=== PATIENT | female | born 2000 | race Two or more races ===

== ENCOUNTER 2020-05-16 01:23 | Observation (INO) | payer SELFPAY ==
[2020-05-16 04:50] LABS: ABSOLUTE BASOPHILS # (AUTO) 0.1 10^3/uL (0.0-0.2); ABSOLUTE EOSINOPHILS # (AUTO) 0.6 10^3/uL (0.0-0.6); ABSOLUTE LYMPHOCYTES (AUTO) 3.9 10^3/uL (0.5-4.7); ABSOLUTE MONOCYTES (AUTO) 0.9 10^3/uL (0.1-1.4); BASOPHILS % (AUTO) 0.7 % (0-2); EOSINOPHILS % (AUTO) 4.4 % (0-6); HEMATOCRIT 35.7 % (36.0-47.0); LYMPHOCYTES % (AUTO) 26.9 % (13-45); MEAN CORPUSCULAR HEMOGLOBIN 23.8 pg (27.0-33.4); MEAN CORPUSCULAR HGB CONC 33.5 g/dL (32.0-36.0); MEAN CORPUSCULAR VOLUME 71 fl (80-97); MONOCYTES % (AUTO) 6.5 % (3-13); PLATELET COUNT 422 10^3/uL (150-450); RED BLOOD COUNT 5.04 10^6/uL (3.72-5.28); RED CELL DISTRIBUTION WIDTH 16.7 % (11.5-14.0); SEGMENTED NEUTROPHILS % (AUTO) 61.5 % (42-78); TOTAL CELLS COUNTED % (AUTO) 100 %; WHITE BLOOD COUNT 14.7 10^3/uL (4.0-10.5)
[2020-05-16 05:07] LABS: ALBUMIN 4.4 g/dL (3.5-5.0); ALKALINE PHOSPHATASE 66 U/L (38-126); ANION GAP 9 (5-19); ASPARTATE AMINO TRANSFERASE 25 U/L (14-36); BILIRUBIN,DIRECT 0.2 mg/dL (0.0-0.4); BILIRUBIN,TOTAL 0.5 mg/dL (0.2-1.3); BLOOD UREA NITROGEN 14 mg/dL (7-20); CALCIUM 9.4 mg/dL (8.4-10.2); CARBON DIOXIDE 25 mmol/L (22-30); CHLORIDE 104 mmol/L (98-107); GLUCOSE 89 mg/dL (75-110); POTASSIUM 4.3 mmol/L (3.6-5.0); TOTAL PROTEIN 7.7 g/dL (6.3-8.2)
[2020-05-16 05:16] LABS: APPEARANCE,URINE CLEAR; BILIRUBIN,URINE NEGATIVE (NEGATIVE); COLOR,URINE YELLOW; GLUCOSE, URINE NEGATIVE (NEGATIVE); KETONES,URINE NEGATIVE (NEGATIVE); LEUKOCYTE ESTERASE,URINE NEGATIVE (NEGATIVE); NITRITE,URINE NEGATIVE (NEGATIVE); PROTEIN,URINE NEGATIVE (NEGATIVE); URINE SPECIFIC GRAVITY 1.028; UROBILINOGEN,URINE NEGATIVE mg/dL (<2.0)
--- NOTE | 2020-05-16 08:30 | ER Document Report ---
ED GI/ - General Chief Complaint: Abdominal Pain Stated Complaint: abdominal pain Time Seen by Provider: 05/16/20 08:18 Notes: CHIEF COMPLAINT: Right upper quadrant pain for a week HPI: 19-year-old obese female presenting for right upper quadrant pain for a week became constant yesterday afternoon. Has had slight nausea no vomiting no fever. States she has been diagnosed with gallstones in the past. ROS: See HPI - all other systems were reviewed and are otherwise negative Constitutional: no fever Eyes: no drainage, no blurred vision ENT: no runny nose, no sore throat Cardiovascular: no chest pain Resp: no SOB, no cough GI: no vomiting, no diarrhea, + abdominal pain, positive nausea : no dysuria Integumentary: no rash Allergy: no hives Musculoskeletal: no extremity pain or swelling Neurological: no numbness/tingling, no weakness MEDICATIONS: I agree with the patient medications as charted by the RN. ALLERGIES: I agree with the allergies as charted by the RN. PAST MEDICAL HISTORY/PAST SURGICAL HISTORY: Reviewed and agree as charted by RN. SOCIAL HISTORY: Reviewed and agree as charted by RN. FAMILY HISTORY: No significant familial comorbid conditions directly related to patient complaint EXAM: Reviewed vital signs as charted by RN. CONSTITUTIONAL: Alert and oriented and responds appropriately to questions. Well-appearing; well-nourished HEAD: Normocephalic; atraumatic EYES: PERRL; Conjunctivae clear, sclerae non-icteric ENT: normal nose; no rhinorrhea; moist mucous membranes; pharynx without lesions noted, no uvula edema or deviation, no tonsillar hypertrophy, phonation normal NECK: Supple without meningismus; non-tender; no cervical lymphadenopathy, no masses CARD: RRR; no murmurs, no clicks, no rubs, no gallops; symmetric distal pulses RESP: Normal chest excursion without splinting or tachypnea; breath sounds clear and equal bilaterally; no wheezes, no rhonchi, no rales, pulse oximetry 97% on room air not hypoxic ABD/GI: Obese, normal bowel sounds; non-distended; soft, moderate tenderness w ith guarding in the right upper quadrant, positive Kan sign; no palpable organomegaly or masses. BACK: The back appears normal and is non-tender to palpation, there is no CVA tenderness EXT: Normal ROM in all joints; non-tender to palpation; no cyanosis, no effusions, no edema SKIN: Normal color for age and race; warm; dry; good turgor; no acute lesions noted NEURO: Moves all extremities equally; Motor and sensory function intact PSYCH: The patient's mood and manner are appropriate. Grooming and personal hygiene are appropriate. MDM: 19-year-old female with history of cholelithiasis presenting with right upper quadrant pain intermittent for a week more constant since yesterday after noon. Moderate tenderness in the right upper quadrant will obtain ultrasound to evaluate for cholecystitis. Patient with a mild leukocytosis but no lab abnormalities in her liver functions or lipase. - Related Data Allergies/Adverse Reactions: No Known Allergies Allergy (Verified 05/16/20 08:09) Past Medical History - Social History Smoking Status: Never Smoker Family History: Reviewed & Not Pertinent Past Surgical History: Reports: Hx Tonsillectomy Physical Exam - Vital signs Vitals: Temp Pulse Resp BP Pulse Ox 98.2 F 63 18 133/66 H 100 05/16/20 02:28 05/16/20 02:28 05/16/20 02:28 05/16/20 02:28 05/16/20 02:28 Course - Re-evaluation Re-evalutation: 05/16/20 11:22 Patient's ultrasound suggests cholecystitis. Gallstones in the neck with gallbladder wall thickening. She is still moderately tender in the right upper quadrant. Has been n.p.o. since last night. Patient denies . I will send a test as this was not ordered with her original blood work last night. Dr. Hall down to see the patient. Will admit - Vital Signs Vital signs: Temp Pulse Resp BP Pulse Ox 97.9 F 73 16 134/67 H 100 05/16/20 10:26 05/16/20 10:26 05/16/20 10:26 05/16/20 10:26 05/16/20 10:26 - Laboratory Result Diagrams: 05/16/20 04:35 05/16/20 04:35 Laboratory results interpreted by me: 05/16/20 04:35 WBC 14.7 H Hct 35.7 L MCV 71 L MCH 23.8 L RDW 16.7 H Absolute Neuts (auto) 9.0 H Discharge - Discharge Clinical Impression: Acute cholecystitis due to biliary calculus Condition: Stable Disposition: ADMITTED INPATIENT Admitting Provider: Surgicalist - Dr. Hall Unit Admitted: Surgical Floor
[2020-05-16] MEDS ORDERED: ONDANSETRON HCL INJ/PF 4 MG/2 ML SDV IV ONE (10:53)
[2020-05-16] MEDS ORDERED: MORPHINE SULFATE 10 MG/ML INJ IV ONE (10:53)
--- NOTE | 2020-05-16 10:57 | RADIOLOGY REPORT (SQ) ---
EXAM DESCRIPTION: U/S ABDOMEN LIMITED W/O DOP IMAGES COMPLETED DATE/TIME: 05/16/2020 10:41 am REASON FOR STUDY: ruq pain hx gallstones COMPARISON: None. TECHNIQUE: Dynamic and static grayscale images acquired of the abdomen and recorded on PACS. Additio nal selected color Doppler and spectral images recorded. LIMITATIONS: None. FINDINGS: PANCREAS: No masses. Visualized pancreatic duct normal caliber. LIVER: Enlarged, 21.8 cm. No masses identified. Echotexture mildly increased consistent with fatty i nfiltration. LIVER VASCULATURE: Normal directional flow of the main portal vein and hepatic veins. GALLBLADDER: Multiple Gallstones noted within the gallbladder neck and increased gallbladder wall thi ckness, 4 mm. No pericholecystic fluid. ULTRASOUND-DETECTED DE SOUZA'S SIGN: Negative. INTRAHEPATIC DUCTS AND COMMON DUCT: CBD and intrahepatic ducts normal caliber. No filling defects. INFERIOR VENA CAVA: Normal flow. AORTA: No aneurysm identified. RIGHT KIDNEY: Normal size. Normal echogenicity. No solid or suspicious masses. No hydronephros is. No calcifications. PERITONEAL AND RIGHT PLEURAL SPACE: No ascites or effusions. OTHER: No other significant findings. IMPRESSION: Multiple Gallstones noted within the gallbladder neck and increased gallbladder wall thi ckness, 4 mm. No pericholecystic fluid. TECHNICAL DOCUMENTATION: JOB ID: [id number] [place]-[id number] 2010 [employer]- All Rights Reserved Reading location - IP/workstation name: [email or web address]
[2020-05-16] MEDS ORDERED: NORMAL SALINE 1000 ML 1,000 ML IV ONE ×2 (11:40→11:41)
[2020-05-16] MEDS ORDERED: CEFOXITIN INJ 2 GM VIAL IV ONE (11:43)
[2020-05-16] MEDS ORDERED: ONDANSETRON HCL INJ/PF 4 MG/2 ML SDV IV PRN (11:53)
[2020-05-16] MEDS ORDERED: MORPHINE SULFATE 10 MG/ML INJ IV PRN (11:53)
--- NOTE | 2020-05-16 11:53 | PDOC H&P ---
History of Present Illness Admission Date/PCP: 05/16/20 11:39 Patient complains of: Right upper quadrant abdominal pain for 1 week History of Present Illness: ELLYN ECKERT is a 19 year old female, healthy, complaining of right upper quadrant abdominal pain for 1 week, who presents to the emergency room with above symptoms. An ultrasound gallbladder reveals gallbladder wall thickening with multiple gallstones. She has a mild leukocytosis of 14,000 and normal liver profile. Past Surgical History Past Surgical History: Reports: Tonsillectomy Social History Smoking Status: Never Smoker Family History Family History: Reviewed & Not Pertinent Parental Family History Reviewed: No Children Family History Reviewed: No Sibling(s) Family History Reviewed.: No Medication/Allergy Allergies/Adverse Reactions: No Known Allergies Allergy (Verified 05/16/20 08:09) Physical Exam Vital Signs: Temp Pulse Resp BP Pulse Ox 97.9 F 73 16 134/67 H 100 05/16/20 10:26 05/16/20 10:26 05/16/20 10:26 05/16/20 10:26 05/16/20 10:26 Intake & Output 05/15/20 05/16/20 05/17/20 06:59 06:59 06:59 Weight 122.47 kg General appearance: PRESENT: no acute distress, obese Head exam: PRESENT: atraumatic, normocephalic Eye exam: PRESENT: EOMI Mouth exam: PRESENT: moist, neck supple Neck exam: PRESENT: full ROM Respiratory exam: PRESENT: clear to auscultation fabiola Cardiovascular exam: PRESENT: RRR GI/Abdominal exam: PRESENT: hypoactive bowel sounds, soft, tenderness - Right upper quadrant with grimacing Extremities exam: PRESENT: full ROM, tenderness Neurological exam: PRESENT: alert, awake, oriented to time, CN II-XII grossly intact Psychiatric exam: PRESENT: appropriate affect Skin exam: PRESENT: warm Results Laboratory Results: 05/16/20 04:35 05/16/20 04:35 05/16/20 05/16/20 05/16/20 04:35 04:35 04:35 WBC 14.7 H RBC 5.04 Hgb 12.0 Hct 35.7 L MCV 71 L MCH 23.8 L MCHC 33.5 RDW 16.7 H Plt Count 422 Seg Neutrophils % 61.5 Sodium 137.8 Potassium 4.3 Chloride 104 Carbon Dioxide 25 Anion Gap 9 BUN 14 Creatinine 0.63 Est GFR ( Amer) > 60 Glucose 89 Calcium 9.4 Total Bilirubin 0.5 AST 25 Alkaline Phosphatase 66 Total Protein 7.7 Albumin 4.4 Lipase 61.1 Serum HCG, Qual Urine Color YELLOW Urine Appearance CLEAR Urine pH 6.0 Ur Specific [place] 1.028 Urine Protein NEGATIVE Urine Glucose (UA) NEGATIVE Urine Ketones NEGATIVE Urine Blood NEGATIVE Urine Nitrite NEGATIVE Ur Leukocyte Esterase NEGATIVE Urine WBC (Auto) 3 Urine RBC (Auto) 2 05/16/20 04:35 WBC RBC Hgb Hct MCV MCH MCHC RDW Plt Count Seg Neutrophils % Sodium Potassium Chloride Carbon Dioxide Anion Gap BUN Creatinine Est GFR ( Amer) Glucose Calcium Total Bilirubin AST Alkaline Phosphatase Total Protein Albumin Lipase Serum HCG, Qual NEGATIVE Urine Color Urine Appearance Urine pH Ur Specific [place] Urine Protein Urine Glucose (UA) Urine Ketones Urine Blood Urine Nitrite Ur Leukocyte Esterase Urine WBC (Auto) Urine RBC (Auto) Impressions: Abdomen Ultrasound 05/16/20 08:31 IMPRESSION: Multiple Gallstones noted within the gallbladder neck and increased gallbladder wall thickness, 4 mm. No pericholecystic fluid. Assessment & Plan - Diagnosis (1) Acute cholecystitis due to biliary calculus Is this a current diagnosis for this admission?: Yes - Time Time Spent: 30 to 50 Minutes Medications reviewed and adjusted accordingly: Yes Anticipated Discharge Disposition: Home, Self Care Anticipated Discharge Timeframe: within 36 hours - Plan Summary Plan Summary: Assessment: 1 week history of right upper quadrant pain History of cholelithiasis for 2 years Ultrasound gallbladder significant for acute cholecystitis with cholelithiasis Mild leukocytosis 14,000 Normal liver profile Physical exam significant for right upper quadrant pain Plan: Admit N.p.o. IV fluids IV Mefoxin 2 g every 8 COVID-19 test preop Plan laparoscopic cholecystectomy possible open possible cholangiogram. Procedure, risks, benefits, complications, including bowel injury, bleeding from the liver, injury to the bile ducts which may require a second operation and/or transfer to tertiary center, multiple infections, and have been discussed with the patient, her questions were answered to her satisfaction, she desires to proceed
[2020-05-16] MEDS ORDERED: GLYCOPYRROLATE 1 MG/5 ML VIAL ONE (13:44)
[2020-05-16] MEDS ORDERED: NEOSTIGMINE METHYLSULFATE 10 MG/10 ML VIAL ONE (13:44)
[2020-05-16] MEDS ORDERED: CEFOXITIN INJ 2 GM VIAL IV SCH (14:00)
[2020-05-16] MEDS ORDERED: DEXTROSE 40% GEL 15 GM TUBE PO PRN ×2 (16:42)
[2020-05-16] MEDS ORDERED: DEXTROSE 50%-WATER 25 GM/50 ML DISP.SYRIN IV PRN ×2 (16:42)
[2020-05-16] MEDS ORDERED: GLUCAGON,HUMAN RECOMB 1 MG INJ SUBCUT PRN (16:42)
[2020-05-16] MEDS: CEFOXITIN SODIUM 2 GM in DEXTROSE 5%-WATER 100 ML IV SCH (19:23)
[2020-05-17] MEDS: CEFOXITIN SODIUM 2 GM in DEXTROSE 5%-WATER 100 ML IV SCH ×3 (02:57→17:43)
[2020-05-17 07:35] LABS: ABSOLUTE EOSINOPHILS # (AUTO) 0.5 10^3/uL (0.0-0.6); ABSOLUTE LYMPHOCYTES (AUTO) 2.8 10^3/uL (0.5-4.7); ABSOLUTE MONOCYTES (AUTO) 0.5 10^3/uL (0.1-1.4); ABSOLUTE NEUT (AUTO) 4.9 10^3/uL (1.7-8.2); BASOPHILS % (AUTO) 0.6 % (0-2); EOSINOPHILS % (AUTO) 5.2 % (0-6); HEMOGLOBIN 11.2 g/dL (12.0-15.5); LYMPHOCYTES % (AUTO) 32.4 % (13-45); MEAN CORPUSCULAR HGB CONC 33.9 g/dL (32.0-36.0); MEAN CORPUSCULAR VOLUME 71 fl (80-97); MONOCYTES % (AUTO) 6.1 % (3-13); PLATELET COUNT 337 10^3/uL (150-450); RED BLOOD COUNT 4.66 10^6/uL (3.72-5.28); RED CELL DISTRIBUTION WIDTH 16.7 % (11.5-14.0); SEGMENTED NEUTROPHILS % (AUTO) 55.7 % (42-78); TOTAL CELLS COUNTED % (AUTO) 100 %; WHITE BLOOD COUNT 8.8 10^3/uL (4.0-10.5)
[2020-05-17 07:47] LABS: ALBUMIN 3.9 g/dL (3.5-5.0); ALKALINE PHOSPHATASE 56 U/L (38-126); ANION GAP 8 (5-19); ASPARTATE AMINO TRANSFERASE 20 U/L (14-36); BILIRUBIN,DIRECT 0.3 mg/dL (0.0-0.4); BILIRUBIN,TOTAL 0.6 mg/dL (0.2-1.3); BLOOD UREA NITROGEN 7 mg/dL (7-20); CALCIUM 9.2 mg/dL (8.4-10.2); CARBON DIOXIDE 25 mmol/L (22-30); CHLORIDE 107 mmol/L (98-107); GLUCOSE 75 mg/dL (75-110); POTASSIUM 4.3 mmol/L (3.6-5.0); TOTAL PROTEIN 6.9 g/dL (6.3-8.2)
--- NOTE | 2020-05-17 10:28 | PDOC PROGRESS REPORT ---
Subjective Progress Note for:: 05/17/20 Subjective:: The patient is feeling comfortable, complaining of minimal abdominal discomfort, no nausea or vomiting reported Reason For Visit: ACUTE CHOLECYSTITIS DUE TO BILIARY CALCULUS Physical Exam Vital Signs: Temp Pulse Resp BP Pulse Ox 97.8 F 69 16 106/44 L 100 05/17/20 08:00 05/17/20 07:39 05/17/20 07:39 05/17/20 07:39 05/17/20 07:39 Intake & Output 05/16/20 05/17/20 05/18/20 06:59 06:59 06:59 Intake Total 2089 Balance 2089 Weight 122.47 kg 124 kg General appearance: PRESENT: no acute distress, obese Respiratory exam: PRESENT: clear to auscultation fabiola Cardiovascular exam: PRESENT: RRR GI/Abdominal exam: PRESENT: soft, tenderness - Right upper quadrant Results Laboratory Results: 05/17/20 06:14 05/17/20 06:14 05/16/20 05/17/20 05/17/20 04:35 06:14 06:14 WBC 8.8 RBC 4.66 Hgb 11.2 L Hct 33.0 L MCV 71 L MCH 24.0 L MCHC 33.9 RDW 16.7 H Plt Count 337 Seg Neutrophils % 55.7 Sodium 139.5 Potassium 4.3 Chloride 107 Carbon Dioxide 25 Anion Gap 8 BUN 7 Creatinine 0.61 Est GFR ( Amer) > 60 Glucose 75 Calcium 9.2 Total Bilirubin 0.6 AST 20 Alkaline Phosphatase 56 Total Protein 6.9 Albumin 3.9 Serum HCG, Qual NEGATIVE Impressions: Abdomen Ultrasound 05/16/20 08:31 IMPRESSION: Multiple Gallstones noted within the gallbladder neck and increased gallbladder wall thickness, 4 mm. No pericholecystic fluid. Assessment & Plan - Diagnosis (1) Acute cholecystitis due to biliary calculus Is this a current diagnosis for this admission?: Yes - Time Anticipated Discharge Disposition: Home, Self Care Anticipated Discharge Timeframe: within 48 hours - Plan Summary Plan Summary: Assessment: Acute cholecystitis with cholelithiasis as per ultrasound White blood cell count normal today CMP within normal limits Physical exam significant for slight right upper quadrant tenderness COVID-19 test pending Plan: Laparoscopic cholecystectomy, possible open, possible cholangiogram as soon as the COVID-19 test results are available Continue n.p.o. Continue IV fluids Continue IV antibiotics (Mefoxin)
[2020-05-17] MEDS: NORMAL SALINE 1000 ML 1,000 ML IV PRN (14:58)
--- NOTE | 2020-05-17 21:41 | CDI QUERY ---
<KULWANT GARCIA - Last Filed: 05/17/20 21:39> CDI Query CDI Review: Documentation in the Medical Record indicates : Per ED notes: 19-year-old obese female presenting for right upper quadrant pain for a week became constant yesterday afternoon Height: 5 ft 4 in Weight: 124 kg (272.8 lbs) Calculated BMI: 46.8 kg/m2 Based on your medical judgement, can you further clarify in the Progress Notes the diagnosis associated with these findings: Morbid Obesity / 46.8 kg/m2 Overweight / 46.8 kg/m2 Obesity / 46.8 kg/m2 Other condition (please specify) None of the above / Not applicable Please note: Obesity is defined as: Class 1: BMI of 30 to < 35 Class 2: BMI of 35 to < 40 Class 3: BMI of > 40 (this is also defined as Morbid Obesity) Overweight: BMI 25 to < 30 Normal weight: BMI 18.5 to < 25 The condition of Morbid Obesity is a significant contributing factor to the health and recovery of a patient. Thank you for your consideration. HEATHER Williamson RN Clinical Cnc Machine Operator Physician Advisor <YOSELIN VINCENT - Last Filed: 05/17/20 23:48> CDI Query CDI Review: Agree w/ above and this patient is affected by morbid obesity Agree with Query: Yes - patient is affected by morbid obesity
[2020-05-18] MEDS: NORMAL SALINE 1000 ML 1,000 ML IV PRN (01:33)
[2020-05-18] MEDS: CEFOXITIN SODIUM 2 GM in DEXTROSE 5%-WATER 100 ML IV SCH ×2 (01:33→13:07)
[2020-05-18] MEDS ORDERED: INFLUENZA QUAD (6MOS+) 2020-21 VAC 0.5 ML SYR IM ONE (08:00)
[2020-05-18] MEDS ORDERED: ONDANSETRON HCL INJ/PF 4 MG/2 ML SDV ONE (09:26)
[2020-05-18] MEDS ORDERED: FENTANYL CITRATE INJ/PF 100 MCG/2 ML AMPUL ONE (09:26)
[2020-05-18] MEDS ORDERED: DEXAMETHASONE SOD PHOSPHATE INJ 4 MG/1 ML VIAL ONE (09:26)
[2020-05-18] MEDS ORDERED: MIDAZOLAM 2 MG/2 ML INJ ONE (09:26)
[2020-05-18] MEDS ORDERED: PROPOFOL INJ 200 MG/20 ML VIAL IV ONE (09:27)
[2020-05-18] MEDS ORDERED: BUPIVACAINE HCL 0.25 % INJ/PF (2.5 MG/1 ML) 30 ML VIAL ONE (09:34)
--- NOTE | 2020-05-18 09:46 | PDOC PROGRESS REPORT ---
Subjective Progress Note for:: 05/18/20 Subjective:: 19 y/o F with acute cholecystitis. She is relatively pain free this am. She denies any SOB or CP. Reason For Visit: ACUTE CHOLECYSTITIS WITH CHOLELITHIASIS Physical Exam Vital Signs: Temp Pulse Resp BP Pulse Ox 97.6 F 72 16 133/53 H 95 05/18/20 08:21 05/18/20 08:21 05/18/20 08:21 05/18/20 08:21 05/18/20 08:21 Intake & Output 05/17/20 05/18/20 05/19/20 06:59 06:59 06:59 Intake Total 2089 1300 Balance 2089 1300 Weight 124 kg 123.4 kg General appearance: PRESENT: no acute distress, cooperative Head exam: PRESENT: atraumatic, normocephalic Eye exam: PRESENT: EOMI, PERRLA. ABSENT: scleral icterus Mouth exam: PRESENT: moist, neck supple Neck exam: ABSENT: meningismus, tenderness, thyromegaly Respiratory exam: PRESENT: unlabored. ABSENT: tachypnea, wheezes Cardiovascular exam: ABSENT: tachycardia GI/Abdominal exam: PRESENT: soft, tenderness - mild RUQ. ABSENT: rigid Rectal exam: PRESENT: deferred Extremities exam: ABSENT: clubbing Musculoskeletal exam: ABSENT: deformity Neurological exam: PRESENT: alert, awake, oriented to person, oriented to place, oriented to time, oriented to situation. ABSENT: motor sensory deficit Psychiatric exam: ABSENT: agitated, anxious, depressed Focused psych exam: ABSENT: delusional Skin exam: ABSENT: cyanosis, erythema, jaundice Results Laboratory Results: 05/17/20 06:14 05/17/20 06:14 Impressions: Abdomen Ultrasound 05/16/20 08:31 IMPRESSION: Multiple Gallstones noted within the gallbladder neck and increased gallbladder wall thickness, 4 mm. No pericholecystic fluid. Assessment & Plan - Diagnosis (1) Acute cholecystitis due to biliary calculus Is this a current diagnosis for this admission?: Yes - Time Anticipated Discharge Disposition: Home, Self Care Anticipated Discharge Timeframe: within 24 hours - Plan Summary Plan Summary: 19 y/o F with acute cholecystitis. Plan for cholecystectomy today.Risks/benefits discussed, informed consent obtained, and all questions answered.
[2020-05-18] MEDS ORDERED: FENTANYL CITRATE INJ/PF 100 MCG/2 ML AMPUL IV PRN ×3 (10:27)
[2020-05-18] MEDS ORDERED: DIPHENHYDRAMINE HCL 50 MG/ML VIAL IV PRN (10:27)
[2020-05-18] MEDS ORDERED: OXYCODONE-ACETAMINOPHEN 5-325 MG TABLET PO PRN ×2 (10:27)
[2020-05-18] MEDS ORDERED: PROMETHAZINE HCL INJ 25 MG/1 ML VIAL IV PRN ×2 (10:27)
[2020-05-18] MEDS ORDERED: MORPHINE SULFATE 10 MG/ML INJ IV PRN (10:27)
[2020-05-18] MEDS ORDERED: MEPERIDINE HCL/PF INJ 25 MG/1 ML DISP.SYRIN IV PRN (10:27)
[2020-05-18] MEDS ORDERED: HYDROMORPHONE HCL INJ/PF 2 MG/ML AMPULE ONE (10:29)
--- NOTE | 2020-05-18 11:41 | Operative Report ---
Nonrecallable Operative Report DATE OF SURGERY: 05/18/20 PREOPERATIVE DIAGNOSIS: Acute cholecystitis POSTOPERATIVE DIAGNOSIS: 1. Same as above. 2. Gallbladder hydrops OPERATION: Laparoscopic cholecystectomy SURGEON: JARAD SANCHEZ ANESTHESIA: GA TISSUE REMOVED OR ALTERED: Gallbladder COMPLICATIONS: None apparent ESTIMATED BLOOD LOSS: 30 cc PROCEDURE: Drains/implants: 15 Nepali round Mike drain in the gallbladder fossa. Procedure in detail: After informed consent was obtained, the patient was brought into the operating room and laid in the supine position. The area of the abdomen was prepped and draped in a normal sterile fashion. A supraumbilical incision was created with a 15 blade scalpel. Dissection was carried through the subcutaneous tissues using sharp and blunt dissection. The cicatrix was identified, grasped with a Deo clamp, and retracted upwards. The linea alba fascia was incised sharply, the abdomen was entered sharply. The balloon trocar was inserted, and pneumoperitoneum was achieved. The 5 mm subxiphoid port was placed under direct laparoscopic visualization. 2 more 5 mm ports were placed in the right upper quadrant in similar fashion. Atraumatic graspers were placed through the 5 mm ports. The gallbladder was tense and distended, secondary to this a cyst aspiration needle was used to aspirate bile from the gallbladder. The bile was found to be hydropic. The gallbladder was then retracted cephalad and laterally. Dissection was begun in the triangle of [place]. There was a dense inflammatory reaction in and around the infundibulum of the gallbladder. It was very difficult to identify the cystic duct. Secondary to this, a dome down technique was employed. The gallbladder was freed from the liver using a mixture of electrocautery and blunt dissection. Once the infundibulum was reached, the cystic artery was visually identified, and clipped. The gallbladder was then amputated at the level of the infundibulum. 2 stones were extracted from the neck of the gallbladder. After this was completed, the infundibulum was closed using a 0 PDS Endoloop. The gallbladder was then placed into an Endo Catch bag, and pulled out through the umbilicus. The camera was reinserted. The abdomen was copiously irrigated and suctioned, until the effluent was clear. The hilum was inspected. It was found to be free of any leakage of blood or bile. A 15 Nepali round Mike drain was then placed into the lateralmost port. It was situated into the gallbladder fossa. It was sutured in place using 2-0 nylon suture. The 5 mm trochars were then removed under direct laparoscopic visualization. The supraumbilical trocar was then removed, and pneumoperitoneum was relieved. The supraumbilical fascia was closed using 0 Vicryl suture in [id number] fashion. The overlying skin was closed using 4-0 Vicryl Rapide suture in subcuticular fashion. Dressings were placed, and the procedure was concluded. All sponge, instrument, and needle counts were correct x2. Condition: Stable.
[2020-05-18] MEDS: FENTANYL CITRATE INJ/PF 100 MCG/2 ML AMPUL ONE ×2 (11:50→12:10)
[2020-05-18] MEDS: IBUPROFEN 800 MG TABLET PO SCH (16:50)
[2020-05-18] MEDS: HYDROCODONE/ACETAMINOPHEN 10-325 MG TABLET PO PRN ×2 (17:42→21:44)
[2020-05-19] MEDS: HYDROCODONE/ACETAMINOPHEN 10-325 MG TABLET PO PRN ×2 (02:00→06:53)
--- NOTE | 2020-05-19 06:44 | PDOC DISCHARGE SUMMARY ---
General - Admit/Disc Date/PCP Admission Date/Primary Care Provider: 05/16/20 11:39 Discharge Date: 05/19/20 - Discharge Diagnosis Final Diagnosis: acute cholecystitis - Assessment Summary: This is a 19-year-old female admitted with acute cholecystitis. She was admitted to the hospital and started on intravenous antibiotics. She was taken to the operating room yesterday, where laparoscopic cholecystectomy was successfully performed. The patient was taken to the floor in stable condition. She began tolerating a diet. Her pain is controlled with oral pain medications. At this time, it is felt that she has reached maximal hospital benefit and is fit for discharge. - Additional Information Resuscitation Status: Full Code Discharge Diet: As Tolerated Discharge Activity: No Lifting Over 10 Pounds, No Lifting/Push/Pulling Prescriptions: Hydrocodone/Acetaminophen [[place] 10-325 mg Tablet] 1 tab PO Q6HP PRN #14 tablet PRN Reason: For Pain Home Medications: Hydrocodone/Acetaminophen [[place] 10-325 mg Tablet] 1 tab PO Q6HP PRN #14 tablet 05/19/20 Additional Information: Discharge home. Diet as tolerated. Activity: No lifting greater than 10 pounds x 2 weeks. Follow-up with [facility] in 7 to 10 days for drain removal. Record drain output every 24 hours. Okay to shower. [place] 10/3 2 5 mg p.o. every 6 hours PRN for pain. History of Present Illiness History of Present Illness: ELLYN ECKERT is a 19 year old female Physical Exam Vital Signs: Temp Pulse Resp BP Pulse Ox 97.6 F 60 16 113/48 L 99 05/19/20 04:19 05/19/20 04:19 05/19/20 04:19 05/19/20 04:19 05/19/20 04:19 Intake & Output 05/17/20 05/18/20 05/19/20 06:59 06:59 06:59 Intake Total 2089 1300 1590 Output Total 1175 Balance 0 1300 415 Weight 124 kg 123.4 kg 123.1 kg Results Laboratory Results: WBC 8.8 10^3/uL (4.0-10.5) 05/17/20 06:14 RBC 4.66 10^6/uL (3.72-5.28) 05/17/20 06:14 Hgb 11.2 g/dL (12.0-15.5) L 05/17/20 06:14 Hct 33.0 % (36.0-47.0) L 05/17/20 06:14 MCV 71 fl (80-97) L 05/17/20 06:14 MCH 24.0 pg (27.0-33.4) L 05/17/20 06:14 MCHC 33.9 g/dL (32.0-36.0) 05/17/20 06:14 RDW 16.7 % (11.5-14.0) H 05/17/20 06:14 Plt Count 337 10^3/uL (150-450) 05/17/20 06:14 Lymph % (Auto) 32.4 % (13-45) 05/17/20 06:14 Gregg % (Auto) 6.1 % (3-13) 05/17/20 06:14 Eos % (Auto) 5.2 % (0-6) 05/17/20 06:14 Baso % (Auto) 0.6 % (0-2) 05/17/20 06:14 Absolute Neuts (auto) 4.9 10^3/uL (1.7-8.2) 05/17/20 06:14 Absolute Lymphs (auto) 2.8 10^3/uL (0.5-4.7) 05/17/20 06:14 Absolute Monos (auto) 0.5 10^3/uL (0.1-1.4) 05/17/20 06:14 Absolute Eos (auto) 0.5 10^3/uL (0.0-0.6) 05/17/20 06:14 Absolute Basos (auto) 0.0 10^3/uL (0.0-0.2) 05/17/20 06:14 Seg Neutrophils % 55.7 % (42-78) 05/17/20 06:14 Sodium 139.5 mmol/L (137-145) 05/17/20 06:14 Potassium 4.3 mmol/L (3.6-5.0) 05/17/20 06:14 Chloride 107 mmol/L (98-107) 05/17/20 06:14 Carbon Dioxide 25 mmol/L (22-30) 05/17/20 06:14 Anion Gap 8 (5-19) 05/17/20 06:14 BUN 7 mg/dL (7-20) 05/17/20 06:14 Creatinine 0.61 mg/dL (0.52-1.25) 05/17/20 06:14 Est GFR ( Amer) > 60 (>60) 05/17/20 06:14 Est GFR (MDRD) Non-Af > 60 (>60) 05/17/20 06:14 Glucose 75 mg/dL (75-110) 05/17/20 06:14 Calcium 9.2 mg/dL (8.4-10.2) 05/17/20 06:14 Total Bilirubin 0.6 mg/dL (0.2-1.3) 05/17/20 06:14 Direct Bilirubin 0.3 mg/dL (0.0-0.4) 05/17/20 06:14 Neonat Total Bilirubin Not Reportable 05/17/20 06:14 Neonat Direct Bilirubin Not Reportable 05/17/20 06:14 Neonat Indirect Bili Not Reportable 05/17/20 06:14 AST 20 U/L (14-36) 05/17/20 06:14 ALT 23 U/L (<35) 05/17/20 06:14 Alkaline Phosphatase 56 U/L (38-126) 05/17/20 06:14 Total Protein 6.9 g/dL (6.3-8.2) 05/17/20 06:14 Albumin 3.9 g/dL (3.5-5.0) 05/17/20 06:14 Lipase 61.1 U/L (23-300) 05/16/20 04:35 Serum HCG, Qual NEGATIVE (NEGATIVE) 05/16/20 04:35 Urine Color YELLOW 05/16/20 04:35 Urine Appearance CLEAR 05/16/20 04:35 Urine pH 6.0 (5.0-9.0) 05/16/20 04:35 Ur Specific [place] 1.028 05/16/20 04:35 Urine Protein NEGATIVE mg/dL (NEGATIVE) 05/16/20 04:35 Urine Glucose (UA) NEGATIVE mg/dL (NEGATIVE) 05/16/20 04:35 Urine Ketones NEGATIVE mg/dL (NEGATIVE) 05/16/20 04:35 Urine Blood NEGATIVE (NEGATIVE) 05/16/20 04:35 Urine Nitrite NEGATIVE (NEGATIVE) 05/16/20 04:35 Urine Bilirubin NEGATIVE (NEGATIVE) 05/16/20 04:35 Urine Urobilinogen NEGATIVE mg/dL (<2.0) 05/16/20 04:35 Ur Leukocyte Esterase NEGATIVE (NEGATIVE) 05/16/20 04:35 Urine WBC (Auto) 3 /HPF 05/16/20 04:35 Urine RBC (Auto) 2 /HPF 05/16/20 04:35 Urine Bacteria (Auto) TRACE /HPF 05/16/20 04:35 Squamous Epi Cells Auto 2 /HPF 05/16/20 04:35 Urine Mucus (Auto) RARE /LPF 05/16/20 04:35 Urine Ascorbic Acid NEGATIVE (NEGATIVE) 05/16/20 04:35 COVID-19 Source See comment 05/16/20 14:20 COVID-19 ([place]) Not Detected (Not Detect) 05/16/20 14:20 Impressions: Abdomen Ultrasound 05/16/20 08:31 IMPRESSION: Multiple Gallstones noted within the gallbladder neck and increased gallbladder wall thickness, 4 mm. No pericholecystic fluid.
[2020-05-19] MEDS: IBUPROFEN 800 MG TABLET PO SCH (08:04)
[2020-05-19 10:06] VITALS: BP 131/67
== END 2020-05-19 10:00 | disposition home or self-care (01) ==
LOC: EDBD 01:23 → ER 01:23 → EH 11:39 → INTOOBSV 11:39 → 2N 17:48
DX: K80.00 Calculus of gallbladder with acute cholecystitis without obstruction (principal); R10.11 Right upper quadrant pain; E66.9 Obesity, unspecified; Z68.42 Body mass index [BMI] 45.0-49.9, adult; Z20.828 Contact with and (suspected) exposure to other viral communicable diseases
CPT/HCPCS: 99285; 36415 ×2; 83690; 84703; 85025 ×2; 87635; 80053 ×2; 81001; 88304 ×2; 76705; 90686; 94799; 00790; 47562; G0378 ×4; G0008; J2250; J1100; J3010; J2270 ×2; J2710; J1170; J2405 ×2; J7060 ×3; J7030 ×3; J2704; J3490; J0694 ×3; C9803; 790; 90471